=== PATIENT | male | born 1990 | race American Indian/Alaskan Native ===

== ENCOUNTER 2019-07-21 08:07 | Day surgery (SDC) | payer MEDICAID ==
[2019-07-21] MEDS ORDERED: Lidocaine 2% 5 ML SDV INJECT ONE (08:08)
[2019-07-21] MEDS ORDERED: Ketamine 500 mg/10 ML MDV IV ONE (08:08)
[2019-07-21] MEDS ORDERED: Propofol 200 MG/20 ML SDV IV ONE (08:08)
[2019-07-21] MEDS ORDERED: Sodium Chloride 0.9% 10 ML Syringe FLUSH PRN (08:30)
[2019-07-21] MEDS ORDERED: Lactated Ringers 1,000 ML IV SCH (08:30)
--- NOTE | 2019-07-21 09:34 | PCM.OPNOTE ---
- General Post-Op/Procedure Note Date of Surgery/Procedure: 07/21/19 Operative Procedure(s): egd Findings: nl exam Pre Op Diagnosis: regurgitation with rechewing of food Post-Op Diagnosis: nl egd Anesthesia Technique: MAC Primary Surgeon: Tato Corley Anesthesia Provider: Petr Hawkins Pathology: none Complications: None Condition: Good Free Text/Narrative:: see dictation
--- NOTE | 2019-07-21 15:39 | OR ---
DATE OF OPERATION: 07/21/2019 SURGEON: Tato Corley MD PROCEDURE PERFORMED: Esophagogastroduodenoscopy. PREOPERATIVE DIAGNOSIS: Regurgitation and retrieving the food. POSTOPERATIVE DIAGNOSIS: Normal exam. INDICATIONS FOR PROCEDURE: This is a 29-year-old white male who has a history of regurgitation, retrieving the food. This is thought to be behavioral. The patient is a resident of [facility]. There was some concern given his longstanding history of regurgitation that he might have developed some esophagitis and due to his mental condition, he is not the best historian. He was offered and accepted an EGD. DESCRIPTION OF OPERATION: After an excellent IV sedation was administered, bite block was inserted. Flexible endoscope was passed without difficulty down the patient's esophagus into the stomach. The stomach was insufflated. Scope passed through the pylorus, second portion duodenum, and slowly withdrawn. The following findings were noted: Duodenum is unremarkable. Stomach is unremarkable. Esophagus is unremarkable. The patient tolerated the procedure well. After removing the scope and deflating the stomach, he was taken to recovery in good condition . /[id number] /MODL
== END 2019-07-21 10:52 | disposition home or self-care (01) ==
LOC: FB.SDS 08:07
PROVIDERS: ATTEND Surgery
DX: R11.10 Vomiting, unspecified (principal); F90.9 Attention-deficit hyperactivity disorder, unspecified type; K21.9 Gastro-esophageal reflux disease without esophagitis; Z79.899 Other long term (current) drug therapy; Z88.8 Allergy status to other drugs, medicaments and biological substances
CPT/HCPCS: 43235; J2001; J2704; J7120; 00731-QZ

== ENCOUNTER 2020-03-11 06:53 | Emergency (ER) | payer MEDICAID ==
[2020-03-11] MEDS: OLANZapine 10 MG Vial IM ONE (07:24)
[2020-03-11] MEDS: LORazepam 2 MG/ML SDV IM ONE (07:24)
--- NOTE | 2020-03-11 08:00 | EDM.PDOC ---
ED HPI GENERAL MEDICAL PROBLEM - General Chief Complaint: Laceration Stated Complaint: HEAD LACERATION Time Seen by Provider: 03/11/20 07:05 Source of Information: Reports: Patient History Limitations: Reports: No Limitations - History of Present Illness INITIAL COMMENTS - FREE TEXT/NARRATIVE: Patient presented to the ED because of laceration over the left eyebrow/eyelid. He apparently hit his face on the wall in his house and sustained a 1.5 cm laceration. Patient is austistic and was accompanied by an employee from the [employer]. - Related Data Allergies Allergy/AdvReac Type Severity Reaction Status Date / Time carbamazepine [From Tegretol] Allergy Other Verified 03/11/20 09:36 Home Meds: Home Meds ALPRAZolam [Xanax] 1 mg PO ASDIRECTED PRN 07/17/19 [History] Calcium Carb/Vitamin D3/Vit K1 [Viactiv 650 mg-12.5 Mcg Chew] 1 each PO DAILY 07/17/19 [History] Clindamycin Phos/Benzoyl Perox [Onexton 1.2%-3.75% Gel] 1 appful TOP BID 07/17/19 [History] LORazepam [Ativan] 2 mg PO ASDIRECTED 07/17/19 [History] Propranolol [Inderal] 40 mg PO BID 07/17/19 [History] Triamcinolone Acetonide [Kenalog 0.1% Crm] 1 applic TOP BID 07/17/19 [History] traZODone 150 mg PO BEDTIME 07/17/19 [History] Acetaminophen [Tylenol Extra Strength] 1,000 mg PO Q8H PRN 03/11/20 [History] Hydrophilic Ointment [Aquaphilic Ointment] 1 applic TOP BID 03/11/20 [History] Melatonin 10 mg PO BEDTIME 03/11/20 [History] Pediatric Multivitamin No.17 [Children's Chewable Vitamin] 2 each PO DAILY 03/11/20 [History] Vits A and D/White Pet/Lanolin [A and D Ointment] 1 applic TOP ASDIRECTED PRN 03/11/20 [History] risperiDONE [Risperidone] 2 mg PO TID 03/11/20 [History] Past Medical History HEENT History: Reports: Otitis Media Other HEENT History: EXOTROPIA Cardiovascular History: Reports: None Respiratory History: Reports: None Gastrointestinal History: Reports: Chronic Constipation, GERD Genitourinary History: Reports: Urinary Incontinence Musculoskeletal History: Reports: None Neurological History: Reports: Seizure Other Neuro History: EPILEPSY, MICROCEPHALY Psychiatric History: Reports: ADHD, Autism Other Psychiatric History: MENTAL RETARDATION Endocrine/Metabolic History: Reports: None Hematologic History: Reports: None Dermatologic History: Reports: Eczema Other Dermatologic History: RASH, OTHER NONSPECIFIC SKIN ERUPTION, PITYRIASIS ROSEA - Infectious Disease History Infectious Disease History: Reports: None - Past Surgical History Head Surgeries/Procedures: Reports: None Other HEENT Surgeries/Procedures: TEETH EXTRACTION Social & Family History - Family History Family Medical History: Noncontributory - Caffeine Use Caffeine Use: Reports: Soda ED ROS GENERAL - Review of Systems Review Of Systems: See Below Constitutional: Reports: No Symptoms HEENT: Reports: No Symptoms Respiratory: Reports: No Symptoms Cardiovascular: Reports: No Symptoms Endocrine: Reports: No Symptoms GI/Abdominal: Reports: No Symptoms : Reports: No Symptoms Musculoskeletal: Reports: No Symptoms Skin: Reports: No Symptoms, Wound Neurological: Reports: No Symptoms Psychiatric: Reports: No Symptoms ED EXAM, SKIN/RASH Exam: See Below Exam Limited By: No Limitations General Appearance: Alert, No Apparent Distress Eye Exam: Bilateral Eye: PERRL Ears: Normal External Exam, Normal Canal Nose: Normal Inspection, Normal Mucosa, No Blood Throat/Mouth: Normal Inspection, Normal Lips, Normal Teeth Head: Atraumatic, Normocephalic Neck: Normal Inspection, Supple, Non-Tender, Full Range of Motion Respiratory/Chest: No Respiratory Distress, Lungs Clear, Normal Breath Sounds Cardiovascular: Normal Peripheral Pulses, Regular Rate, Rhythm, No Edema, No Gallop GI/Abdominal: Normal Bowel Sounds, Soft, Non-Tender, No Organomegaly, No Distention, No Abnormal Bruit Back Exam: Normal Inspection, Full Range of Motion Extremities: Normal Inspection, Normal Range of Motion, Non-Tender ED SKIN PROCEDURES - Laceration/Wound Repair Left Other Appearance: Superficial, Clean Skin Prep: Chlorhexidine (Hibiciens) Closed with: Dermabond Lac/Wound length In cm: 1.5 Course - Vital Signs Text/Narrative:: UTD with immunization Patient was sedated with ativan 2 mg IM and Zyprexa 5 mg IM because he is agitated and can't keep still. Last Recorded V/S: Last Vital Signs Temp 35.9 C L 03/11/20 07:00 Pulse 99 03/11/20 07:00 Resp 18 03/11/20 07:00 BP 130/97 H 03/11/20 07:00 Pulse Ox 99 03/11/20 07:00 - Orders/Labs/Meds Meds: Medications Discontinued Medications Generic Name Dose Route Start Last Admin Trade Name Eloise PRN Reason Stop Dose Admin Lorazepam 2 mg 03/11/20 07:18 03/11/20 07:24 Ativan IM 03/11/20 07:19 2 mg ONETIME ONE Administration Olanzapine 5 mg 03/11/20 07:19 03/11/20 07:24 Zyprexa IM 03/11/20 07:20 5 mg ONETIME ONE Administration Departure - Departure Time of Disposition: 08:00 Disposition: Home, Self-Care 01 Condition: Good Clinical Impression: Laceration - Discharge Information Instructions: Olanzapine injection (immediate-release), Lorazepam injection, Laceration Care, Adult, [id number], Tissue Adhesive Wound Care, [id number] Referrals: Augustin Shane MD [Primary Care Provider] - Forms: ED Department Discharge Additional Instructions: Please read discharge instructions on laceration and wound care No need to apply an antibiotic ointment, the glue is medicated Take tylenol 1000 mg every 8 hours as needed for pain Keep the wound dry for at least 3-5 days Follow up as needed
== END 2020-03-11 08:10 | disposition home or self-care (01) ==
LOC: FB.ED 06:53
DX: S01.112A Laceration without foreign body of left eyelid and periocular area, initial encounter (principal); F79 Unspecified intellectual disabilities; F84.0 Autistic disorder; Z88.8 Allergy status to other drugs, medicaments and biological substances; Z79.899 Other long term (current) drug therapy; W22.8XXA Striking against or struck by other objects, initial encounter
CPT/HCPCS: 12011; 96372; 99282; J2060; J3490

== ENCOUNTER 2020-03-15 16:30 | Emergency (ER) | payer MEDICAID ==
--- NOTE | 2020-03-15 17:11 | EDM.PDOC ---
ED HPI GENERAL MEDICAL PROBLEM - General Chief Complaint: Skin Complaint Stated Complaint: CUT LOOKED AT AGAIN BY EYE Time Seen by Provider: 03/15/20 16:40 Source of Information: Reports: Patient, Old Records, Other (Staff) History Limitations: Reports: Other (Autism) - History of Present Illness INITIAL COMMENTS - FREE TEXT/NARRATIVE: Staff brings Geovany back into [facility] ED for inspection of laceration thru L eyebrow from March 11 repair with Dermabond. Geovany picked away the material, allowing the wound to dehisence today. There is no bleeding or discharge, and ecchymoses appears to be fading. The wound does not appear to be producing any sxs for Geovany. - Related Data Allergies Allergy/AdvReac Type Severity Reaction Status Date / Time carbamazepine [From Tegretol] Allergy Other Verified 03/11/20 09:36 Home Meds: Home Meds ALPRAZolam [Xanax] 1 mg PO ASDIRECTED PRN 07/17/19 [History] Calcium Carb/Vitamin D3/Vit K1 [Viactiv 650 mg-12.5 Mcg Chew] 1 each PO DAILY 07/17/19 [History] Clindamycin Phos/Benzoyl Perox [Onexton 1.2%-3.75% Gel] 1 appful TOP BID 07/17/19 [History] LORazepam [Ativan] 2 mg PO ASDIRECTED 07/17/19 [History] Propranolol [Inderal] 40 mg PO BID 07/17/19 [History] Triamcinolone Acetonide [Kenalog 0.1% Crm] 1 applic TOP BID 07/17/19 [History] traZODone 150 mg PO BEDTIME 07/17/19 [History] Acetaminophen [Tylenol Extra Strength] 1,000 mg PO Q8H PRN 03/11/20 [History] Hydrophilic Ointment [Aquaphilic Ointment] 1 applic TOP BID 03/11/20 [History] Melatonin 10 mg PO BEDTIME 03/11/20 [History] Pediatric Multivitamin No.17 [Children's Chewable Vitamin] 2 each PO DAILY 03/11/20 [History] Vits A and D/White Pet/Lanolin [A and D Ointment] 1 applic TOP ASDIRECTED PRN 03/11/20 [History] risperiDONE [Risperidone] 2 mg PO TID 03/11/20 [History] Past Medical History HEENT History: Reports: Otitis Media Other HEENT History: EXOTROPIA Cardiovascular History: Reports: None Respiratory History: Reports: None Gastrointestinal History: Reports: Chronic Constipation, GERD Other Gastrointestinal History: Regurgitation. Bowel incontinence. Genitourinary History: Reports: Urinary Incontinence Musculoskeletal History: Reports: None Neurological History: Reports: Seizure Other Neuro History: EPILEPSY, MICROCEPHALY Psychiatric History: Reports: ADHD, Autism Other Psychiatric History: MENTAL RETARDATION Endocrine/Metabolic History: Reports: None Hematologic History: Reports: None Dermatologic History: Reports: Eczema Other Dermatologic History: RASH, OTHER NONSPECIFIC SKIN ERUPTION, PITYRIASIS ROSEA - Infectious Disease History Infectious Disease History: Reports: None - Past Surgical History Head Surgeries/Procedures: Reports: None Other HEENT Surgeries/Procedures: TEETH EXTRACTION Social & Family History - Family History Family Medical History: Noncontributory - Caffeine Use Caffeine Use: Reports: Soda ED ROS GENERAL - Review of Systems Review Of Systems: Comprehensive ROS is negative, except as noted in HPI. ED EXAM, SKIN/RASH Exam: See Below Exam Limited By: Language Barrier (Autism) General Appearance: Alert, WD/WN, No Apparent Distress, Other (pacing) Eye Exam: Left Eye: Periorbital Changes (ecchymoses post wounding), Other (wound dehisence thru L eyebrow), Bilateral Eye: EOMI, PERRL Ears: Normal External Exam Nose: Normal Inspection Throat/Mouth: Normal Inspection Head: Normocephalic Neck: Normal Inspection Respiratory/Chest: Lungs Clear Cardiovascular: Regular Rate, Rhythm Neurological: Alert, No Motor/Sensory Deficits Psychiatric: Anxious Course - Vital Signs Text/Narrative:: Exam completed with some difficulty, no signs of infection. Departure - Departure Time of Disposition: 17:02 Disposition: Home, Self-Care 01 Condition: Fair Clinical Impression: Autism spectrum disorder Dehiscence of laceration wound of forehead Qualifiers: Encounter type: initial encounter Qualified Code(s): T81.30XA - Disruption of wound, unspecified, initial encounter - Discharge Information *PRESCRIPTION DRUG MONITORING PROGRAM REVIEWED*: Not Applicable *COPY OF PRESCRIPTION DRUG MONITORING REPORT IN PATIENT MERCEDES: Not Applicable Instructions: Laceration Care, Adult, [id number] Referrals: Augustin Shane MD [Primary Care Provider] - Forms: ED Department Discharge Care Plan Goals: Shower daily to keep clean Follow up with primary in 1 week. - Problem List & Annotations (1) Dehiscence of laceration wound of forehead SNOMED Code(s): 134489732, 465074528 Code(s): T81.30XA - DISRUPTION OF WOUND, UNSPECIFIED, INITIAL ENCOUNTER Status: Acute Current Visit: Yes Annotation/Comment:: I suggested daily shower to keep wound clean, no dressing required. No meds required. Permit wound to close by second intention. Qualifiers: Encounter type: initial encounter Qualified Code(s): T81.30XA - Disruption of wound, unspecified, initial encounter - Problem List Review Problem List Initiated/Reviewed/Updated: Yes - Assessment/Plan Plan: Follow up with PCP in 1 week.
== END 2020-03-15 16:55 | disposition home or self-care (01) ==
LOC: FB.ED 16:30
DX: T81.33XA Disruption of traumatic injury wound repair, initial encounter (principal); F84.0 Autistic disorder; Z88.8 Allergy status to other drugs, medicaments and biological substances; Z79.899 Other long term (current) drug therapy
CPT/HCPCS: 99282